=== PATIENT | female | born 1995 | race Caucasian/White ===

== ENCOUNTER 2019-06-14 19:28 | Emergency (ER) | payer SELFPAY ==
[~2019-06-14] VITALS: Ht 162.6 cm; Wt 59.0 kg
[2019-06-14 19:36] VITALS: BP_SYST 133
[2019-06-14] MEDS ORDERED: IBUPROFEN 600 MG TABLET PO ONE (23:15)
[2019-06-14 23:20] VITALS: BP_SYST 133
== END 2019-06-14 23:20 | disposition home or self-care (01) ==
LOC: SED 19:28
DX: S90.32XA Contusion of left foot, initial encounter (principal); R03.0 Elevated blood-pressure reading, without diagnosis of hypertension; W20.8XXA Other cause of strike by thrown, projected or falling object, initial encounter; Y93.89 Activity, other specified; Y92.69 Other specified industrial and construction area as the place of occurrence of the external cause; Y99.8 Other external cause status
CPT/HCPCS: 99283